=== PATIENT | female | born 1945 | race Caucasian/White ===

== ENCOUNTER 2020-02-16 13:05 | Emergency (ER) | payer MEDICARE, BC ==
[~2020-02-16] VITALS: Ht 163.8 cm; Wt 85.0 kg
[~2020-02-16 13:05] MED LIST: ADLT ASA LOW81 MG PO; C 500 PO; FISH OIL1000 MG PO; PROBIOTIC OR; VITAMIN B-12500 MCG PO
[2020-02-16 14:23] LABS: HEMOGLOBIN 15.3 g/dl (12.0-16.0); IMMATURE GRANULOCYTES 0.5 % (0.0-5.0); MEAN CELL VOLUME 87.4 fL CALC (80.0-100.0); MEAN CORPUSCULAR HGB 29.7 pG CALC (26.0-32.0); NEUT# 4.28 thou/uL (2.00-7.15); RED BLOOD COUNT 5.15 mill/uL (4.20-5.60)
[2020-02-16 14:39] LABS: ALBUMIN 4.7 g/dL (3.2-5.0); ALKALINE PHOSPHATASE 73 u/l (38-126); ANION GAP 14 (6-22 (CALC)); BILIRUBIN, TOTAL 0.5 mg/dL (0.0-1.4); BUN 15 mg/dL (8-23); BUN/CREATININE RATIO 19 (12-20 (CALC)); CARBON DIOXIDE 26 mmol/l (22-30); CHLORIDE 104 mmol/l (95-108); CREATININE 0.8 mg/dL (0.5-1.0); GFR > 60 ML/MIN (>=60 (CALC)); GFR FOR AFR.AMER. > 60 ML/MIN (>=60 (CALC)); MAGNESIUM 2.1 mg/dL (1.6-2.3); POTASSIUM 4.1 mmol/l (3.5-5.1); SGOT/AST 23 u/l (9-36); SODIUM 140 mmol/l (137-146); TOTAL PROTEIN 8.2 g/dL (6.3-8.2)
[2020-02-16 15:10] LABS: TSH, 3RD GENERATION 2.79 uIU/mL (0.47 - 4.68)
[2020-02-16 15:13] LABS: URINE BILIRUBIN - DIPSTICK NEGATIVE (NEGATIVE); URINE BLOOD DIPSTICK NEGATIVE (NEGATIVE); URINE COLOR YELLOW; URINE GLUCOSE - DIPSTICK NEGATIVE (NEGATIVE); URINE KETONE NEGATIVE (NEGATIVE); URINE LEUK ESTERASE TRACE (NEGATIVE); URINE NITRITE - DIPSTICK NEGATIVE (Negative); URINE PROTEIN - DIPSTICK NEGATIVE (NEG-TRACE); URINE SPECIFIC GRAVITY <=1.005; URINE UROBILINOGEN - DIPSTICK 0.2 E.U./dL (0.2)
[2020-02-16] MEDS ORDERED: ATIVAN0.5 MG PO (15:16)
[2020-02-16 15:30] VITALS: BP 124/68
== END 2020-02-16 15:30 | disposition home or self-care (01) ==
LOC: ED 13:05
DX: F41.9 Anxiety disorder, unspecified (principal); R00.2 Palpitations

== ENCOUNTER 2024-08-24 08:04 | Emergency (ER) | payer MEDICARE, BC ==
[2024-08-24] VITALS (8 sets, daily range): BP systolic 123–152; BP diastolic 62–90
[~2024-08-24] VITALS: Ht 162.6 cm; Wt 66.0 kg
[~2024-08-24 08:04] MED LIST changes: +ASPIRIN 81 LOW81 MG; +ASPIRINCHW 81MG PO; +ATIVAN0.5 MG PO; +FISH OIL1000 M1 PO; +VITAMIN B-121000 MCG PO; +VITAMIN C500 M6 PO
[2024-08-24 09:10] LABS: BASO% 0.3 % (0-3); EOS% 0.2 % (0-8); HEMATOCRIT 43.2 % (37.0-47.0); HEMOGLOBIN 14.4 g/dl (12.0-16.0); IMMATURE GRANULOCYTES 0.3 % (0.0-5.0); MEAN CELL VOLUME 89.1 fL CALC (80.0-100.0); MEAN CORPUSCULAR HGB 29.7 pG CALC (26.0-32.0); MEAN CORPUSCULAR HGB CONC 33.3 g/dL CAL (32.0-36.0); MONO% 6.4 % (2-13); NEUT# 3.47 thou/uL (2.00-7.15); NEUT% 58.8 % (42-76); RED BLOOD COUNT 4.85 mill/uL (4.20-5.60); RED CELL DISTRI WIDTH 12.6 % (11.5-15.5)
[2024-08-24 09:24] LABS: ALBUMIN 4.3 g/dL (3.2-5.0); ALKALINE PHOSPHATASE 90 u/l (38-126); ANION GAP 13 (6-22 (CALC)); BILIRUBIN, TOTAL 0.9 mg/dL (0.02-1.3); BUN 13 mg/dL (8-23); BUN/CREATININE RATIO 16 (12-20 (CALC)); CARBON DIOXIDE 26 mmol/l (22-30); CHLORIDE 105 mmol/l (95-108); CREATININE 0.8 mg/dL (0.5-1.0); ESTIMATED GFR 76 ML/MIN (>=90 (CALC)); POTASSIUM 4.3 mmol/l (3.5-5.1); SGOT/AST 45 u/l (9-36); SODIUM 140 mmol/l (137-146); TOTAL PROTEIN 7.5 g/dL (6.3-8.2)
[2024-08-24 09:38] LABS: URINE BILIRUBIN - DIPSTICK Negative (NEGATIVE); URINE BLOOD DIPSTICK Negative (NEGATIVE); URINE GLUCOSE - DIPSTICK Negative (NEGATIVE); URINE KETONE Negative (NEGATIVE); URINE NITRITE - DIPSTICK Negative (Negative); URINE PROTEIN - DIPSTICK Trace mg/dL (NEG-TRACE); URINE SPECIFIC GRAVITY 1.015; URINE UROBILINOGEN - DIPSTICK 0.2 E.U./dL (0.2)
[2024-08-24 09:42] LABS: URINE COLOR Yellow; URINE LEUK ESTERASE Moderate (NEGATIVE)
[2024-08-24 09:50] LABS: URINE BACTERIA FEW hpf; URINE RBC 0-2 RBC/hpf (0-5); URINE SQUAMOUS EPITHELIAL CELL FEW EPI/hpf (0-FEW)
== END 2024-08-24 10:38 | disposition home or self-care (01) ==
LOC: ED 08:04
PROVIDERS: Family Medicine
DX: U07.1 COVID-19 (principal); R43.9 Unspecified disturbances of smell and taste; R53.1 Weakness; R11.0 Nausea